=== PATIENT | female | born 1965 | race Native Hawaiian/Other Pacific Islander ===

== ENCOUNTER 2016-11-19 17:25 | Emergency (ER) | payer OTHER ==
[~2016-11-19] VITALS: Ht 182.9 cm; Wt 86.6 kg
[~2016-11-19 17:25] MED LIST: ASA LOW DOSE81 MG PO; CRESTOR20 MG PO; FENT25DI TD; FURO40TA93 PO; LEVO0.1T6 PO; LORA1TAB17 PO; OXYC5TAB53 PO; POTA20TA4 PO; PROM25TA52 PO; SOMA350 MG PO; TIZA4TAB5 PO; ZOLP10TA2 PO
[2016-11-19 18:43] VITALS: BP 141/80; TEMP 98.6
== END 2016-11-19 18:44 | disposition home or self-care (01) ==
LOC: ED 17:25
DX: S63.682A Other sprain of left thumb, initial encounter (principal); W18.39XA Other fall on same level, initial encounter; Y93.89 Activity, other specified; Y92.098 Other place in other non-institutional residence as the place of occurrence of the external cause
CPT/HCPCS: 99281

== ENCOUNTER 2018-05-02 21:33 | Outpatient (CLI) | payer OTHER | END 2018-05-02 21:39 | disposition short-term general hospital (02) | LOC: AMB 21:33 | DX: M54.89 Other dorsalgia (principal); M54.2 Cervicalgia; W10.8XXA Fall (on) (from) other stairs and steps, initial encounter; Y93.89 Activity, other specified; Y92.014 Private driveway to single-family (private) house as the place of occurrence of the external cause | CPT/HCPCS: A0425; A0427 ==

== ENCOUNTER 2018-05-02 21:51 | Emergency (ER) | payer OTHER ==
[~2018-05-02] VITALS: Ht 182.9 cm; Wt 89.8 kg
[2018-05-02 22:41] LABS: POTASSIUM 3.6 mmol/L (3.6-5.2)
[2018-05-02 22:45] LABS: PLATELET COUNT 222 K/uL (152-353)
[2018-05-03 01:12] VITALS: BP 119/69; TEMP 98.1
== END 2018-05-03 01:15 | disposition home or self-care (01) ==
LOC: ED 21:51
PROVIDERS: Family Medicine
DX: S00.83XA Contusion of other part of head, initial encounter (principal); S16.1XXA Strain of muscle, fascia and tendon at neck level, initial encounter; S80.02XA Contusion of left knee, initial encounter; R51 Headache; W10.8XXA Fall (on) (from) other stairs and steps, initial encounter; Y92.89 Other specified places as the place of occurrence of the external cause
CPT/HCPCS: 80053; 80320; 85027; 99283

== ENCOUNTER 2018-06-14 20:17 | Emergency (ER) | payer OTHER ==
[~2018-06-14] VITALS: Ht 182.9 cm; Wt 100.2 kg
[2018-06-14 21:07] LABS: PLATELET COUNT 296 K/uL (152-353)
[2018-06-14 21:17] LABS: POTASSIUM 4.4 mmol/L (3.6-5.2); SODIUM 137 mmol/L (136-145)
[2018-06-14 22:47] VITALS: BP 104/70; TEMP 97.3
== END 2018-06-14 23:00 | disposition home or self-care (01) ==
LOC: ED 20:17
DX: G43.909 Migraine, unspecified, not intractable, without status migrainosus (principal); R07.89 Other chest pain
CPT/HCPCS: 36415; 80053; 81000; 82150; 82550; 82553; 83690; 84484; 85027; 93005; 96360; 96375; 99284; J2175; J2550; J7120

== ENCOUNTER 2018-06-15 03:55 | Outpatient (CLI) | payer OTHER | END 2018-06-15 04:02 | disposition short-term general hospital (02) | LOC: AMB 03:55 | DX: R06.02 Shortness of breath (principal) | CPT/HCPCS: A0425; A0429 ==

== ENCOUNTER 2018-06-15 04:07 | Emergency (ER) | payer OTHER ==
[~2018-06-15] VITALS: Ht 182.9 cm; Wt 100.2 kg
[2018-06-15 04:50] LABS: PLATELET COUNT 288 K/uL (152-353)
[2018-06-15 05:11] LABS: POTASSIUM 4.4 mmol/L (3.6-5.2); SODIUM 141 mmol/L (136-145)
[2018-06-15 06:12] VITALS: BP 115/67; TEMP 97.3
== END 2018-06-15 06:14 | disposition home or self-care (01) ==
LOC: ED 04:07
DX: K29.60 Other gastritis without bleeding (principal); B96.81 Helicobacter pylori [H. pylori] as the cause of diseases classified elsewhere; R07.89 Other chest pain
CPT/HCPCS: 36415; 80053; 80307; 81000; 82550; 82553; 84484; 85027; 86318; 93005; 96374; 96375; 99284; J2060; J3490

== ENCOUNTER 2018-09-15 14:43 | Outpatient (CLI) | payer OTHER | END 2018-09-15 14:52 | disposition home or self-care (01) | LOC: AMB 14:43 | DX: R07.89 Other chest pain (principal) | CPT/HCPCS: A0425; A0427 ==

== ENCOUNTER 2018-09-15 14:52 | Emergency (ER) | payer OTHER ==
[~2018-09-15] VITALS: Ht 182.9 cm; Wt 95.3 kg
[2018-09-15 15:32] LABS: PLATELET COUNT 491 K/uL (152-353)
[2018-09-15 15:44] LABS: POTASSIUM 3.9 mmol/L (3.6-5.2); SODIUM 138 mmol/L (136-145)
[2018-09-15 18:36] VITALS: BP 116/68; TEMP 98.6
== END 2018-09-15 18:41 | disposition home or self-care (01) ==
LOC: ED 14:52
PROVIDERS: Emergency Medicine
DX: R07.89 Other chest pain (principal)
CPT/HCPCS: 36415; 80053; 82550; 82553; 84484; 85027; 93005; 96374; 96375; 99284; J2175; J2550

== ENCOUNTER 2018-10-19 14:03 | Outpatient (CLI) | payer OTHER | END 2018-10-19 14:55 | disposition short-term general hospital (02) | LOC: AMB 14:03 | DX: R06.02 Shortness of breath (principal); R07.9 Chest pain, unspecified; R51 Headache | CPT/HCPCS: A0425; A0427 ==

== ENCOUNTER 2018-11-11 22:28 | Outpatient (CLI) | payer OTHER | END 2018-11-11 22:35 | disposition short-term general hospital (02) | LOC: AMB 22:28 | DX: R11.2 Nausea with vomiting, unspecified (principal) | CPT/HCPCS: A0425; A0429 ==

== ENCOUNTER 2018-11-11 22:40 | Emergency (ER) | payer OTHER ==
[~2018-11-11] VITALS: Ht 182.9 cm; Wt 90.7 kg
[2018-11-11 23:56] LABS: PLATELET COUNT 328 K/uL (152-353)
[2018-11-12 02:00] VITALS: BP 131/75; TEMP 98.2
== END 2018-11-12 02:00 | disposition home or self-care (01) ==
LOC: ED 22:40
PROVIDERS: Internal Medicine
DX: R07.89 Other chest pain (principal); R11.2 Nausea with vomiting, unspecified; I51.7 Cardiomegaly; J44.9 Chronic obstructive pulmonary disease, unspecified
CPT/HCPCS: 36415; 74022; 80053; 80307; 81000; 82550; 85027; 93005; 96372; 99283; J2270; J2550

== ENCOUNTER 2018-12-09 23:02 | Emergency (ER) | payer OTHER ==
[~2018-12-09] VITALS: Ht 182.9 cm; Wt 99.8 kg
[2018-12-10 00:27] VITALS: BP 111/72; TEMP 97.5
== END 2018-12-10 00:28 | disposition home or self-care (01) ==
LOC: ED 23:02
DX: M25.512 Pain in left shoulder (principal); M19.012 Primary osteoarthritis, left shoulder; Z91.81 History of falling
CPT/HCPCS: 99282

== ENCOUNTER 2019-06-04 16:17 | Outpatient (CLI) | payer OTHER | END 2019-06-04 16:23 | disposition short-term general hospital (02) | LOC: AMB 16:17 | DX: R07.89 Other chest pain (principal) | CPT/HCPCS: A0425; A0427 ==

== ENCOUNTER 2019-06-04 16:27 | Observation (INO) | payer OTHER ==
[~2019-06-04] VITALS: Ht 182.9 cm; Wt 95.7 kg
[2019-06-04 16:33] VITALS: BP 127/81
[2019-06-04 17:02] LABS: PLATELET COUNT 262 K/uL (152-353)
[2019-06-04 17:11] LABS: POTASSIUM 4.1 mmol/L (3.6-5.2); SODIUM 141 mmol/L (136-145)
[2019-06-04 20:00] VITALS: BP 107/68; TEMP 97.8
[2019-06-04 23:59] VITALS: BP 93/61; TEMP 97.9
[2019-06-05 00:41] VITALS: BP 107/68; TEMP 97.8; Ht 182.9 cm; Wt 95.7 kg
--- NOTE | 2019-06-05 01:14 | NUR ---
06/04/191900: PT ARRIVED BY WHEELCHAIR TO ROOM 1106 FROM ER. PT ALERT,ORIENTED X3. DENIES CHEST PAIN AT THIS TIME.
--- NOTE | 2019-06-05 01:16 | NUR ---
06/04/19 2030: IV IN RIGHT HAND CAME OUT. IV RESTARTED BY PAINTER AND DECORATOR AND SAFETY ASSOCIATE X3 TIMES.
--- NOTE | 2019-06-05 01:19 | NUR ---
06/04/19 2300: IV IN LEFT FOREARM INFILTRATED. IV TAKEN OUT. IV RESTARTED AFTER 5 ATTEMPTS BY 2 NURSES. GOOD BLOOD RETURN NOTED, FLUSHED EASILY.
[2019-06-05 02:11] LABS: PARTIAL THROMBOPLASTIN TIME 25.2 SECONDS (24.5-33.6)
[2019-06-05 04:00] VITALS: BP 111/62; TEMP 97.9
[2019-06-05 08:00] VITALS: BP 113/66; TEMP 98.7
--- NOTE | 2019-06-05 08:58 | NUR ---
Pt resting in bed with eyes opened and looking at cell phone. On tele and being monitored at nurses station. Bp 113/66, p 72, r 22, O2-97%. Pt c/o pain of 8 in abdomen and chest area and requested pain meds as she was scrolling on her cell phone. She also c/o nausea and requested pain meds at this time. Prn Iv morphone and Phenergan 25 mg, iv was administered. No acute distress noted. Call light is within reach. Will continue to monitor.
[2019-06-05 12:00] VITALS: BP 96/61; TEMP 98.4
--- NOTE | 2019-06-05 13:57 | NUR ---
Pt was discharged to home and refused to be transported to vehicle and left facility ambulating on foot. She was instructed to follow up with pcp in 3-5 day, and voiced understanding. No acute distress noted.
== END 2019-06-05 14:00 | disposition home or self-care (01) ==
LOC: ED 16:27 → MED/SURG 17:50
PROVIDERS: Internal Medicine; ADMIT Emergency Medicine
DX: R07.89 Other chest pain (principal); I25.10 Atherosclerotic heart disease of native coronary artery without angina pectoris; I25.2 Old myocardial infarction; F41.8 Other specified anxiety disorders; Z95.1 Presence of aortocoronary bypass graft; J44.9 Chronic obstructive pulmonary disease, unspecified; I10 Essential (primary) hypertension
CPT/HCPCS: 36415; 80053; 82150; 82550; 83690; 83735; 84484; 85027; 85610; 85730; 93005; 94664; 94760; 96365; 96367; 96374; 96375; 99220; 99284; G0378; J2270; J2550; J3475

== ENCOUNTER 2019-07-19 15:46 | Emergency (ER) | payer OTHER ==
[~2019-07-19] VITALS: Ht 182.9 cm; Wt 97.5 kg
[2019-07-19 17:53] LABS: PLATELET COUNT 276 K/uL (152-353)
[2019-07-19 18:04] LABS: POTASSIUM 4.1 mmol/L (3.6-5.2)
[2019-07-19 19:13] VITALS: BP 129/74; TEMP 98.4
== END 2019-07-19 19:13 | disposition home or self-care (01) ==
LOC: ED 15:46
PROVIDERS: Family Medicine
DX: G35 Multiple sclerosis (principal); R11.0 Nausea; G89.4 Chronic pain syndrome
CPT/HCPCS: 80053; 81000; 85027; 87502; 87651; 96372; 99283; J2550

== ENCOUNTER 2019-10-11 18:28 | Emergency (ER) | payer OTHER ==
[~2019-10-11] VITALS: Ht 182.9 cm; Wt 99.8 kg
[2019-10-11 19:44] LABS: PLATELET COUNT 282 K/uL (152-353)
[2019-10-11 20:06] LABS: POTASSIUM 3.9 mmol/L (3.6-5.2)
[2019-10-11 20:19] LABS: PARTIAL THROMBOPLASTIN TIME 23.4 SECONDS (24.5-33.6)
[2019-10-11 21:20] VITALS: BP 116/75; TEMP 97.9
== END 2019-10-11 21:20 | disposition home or self-care (01) ==
LOC: ED 18:28
PROVIDERS: Family Medicine
DX: R20.0 Anesthesia of skin (principal); G89.29 Other chronic pain; R10.13 Epigastric pain
CPT/HCPCS: 36415; 80053; 81000; 85027; 85610; 85730; 99283

== ENCOUNTER 2020-12-07 16:38 | Emergency (ER) | payer OTHER ==
[~2020-12-07] VITALS: Ht 182.9 cm; Wt 101.2 kg
[2020-12-07 17:07] LABS: PLATELET COUNT 192 K/uL (152-353)
[2020-12-07 17:14] LABS: POTASSIUM 3.2 mmol/L (3.6-5.2)
[2020-12-07 21:00] VITALS: BP 121/80; TEMP 98
== END 2020-12-07 21:00 | disposition short-term general hospital (02) ==
LOC: ED 16:38
PROVIDERS: Family Medicine
DX: T14.91XA Suicide attempt, initial encounter (principal); F32.89 Other specified depressive episodes; T42.6X2A Poisoning by other antiepileptic and sedative-hypnotic drugs, intentional self-harm, initial encounter; T40.422A Poisoning by tramadol, intentional self-harm, initial encounter; T50.912A Poisoning by multiple unspecified drugs, medicaments and biological substances, intentional self-harm, initial encounter; R53.1 Weakness; Z11.52 Encounter for screening for COVID-19; Y92.89 Other specified places as the place of occurrence of the external cause
CPT/HCPCS: 80053; 80307; 80320; 80329; 81000; 85027; 87635; 93005; 96360; 96361; 99284; U0003

== ENCOUNTER 2021-02-08 13:18 | Emergency (ER) | payer OTHER ==
[~2021-02-08] VITALS: Ht 182.9 cm; Wt 89.8 kg
[2021-02-08 14:23] LABS: PLATELET COUNT 230 K/uL (152-353)
[2021-02-08 14:32] LABS: POTASSIUM 3.7 mmol/L (3.6-5.2); SODIUM 138 mmol/L (136-145)
[2021-02-08 16:28] VITALS: BP 116/69; TEMP 98.1
== END 2021-02-08 16:30 | disposition home or self-care (01) ==
LOC: ED 13:18
PROVIDERS: Family Medicine
DX: M48.56XA Collapsed vertebra, not elsewhere classified, lumbar region, initial encounter for fracture (principal); S39.012A Strain of muscle, fascia and tendon of lower back, initial encounter; W18.39XA Other fall on same level, initial encounter; Z91.81 History of falling; Y92.89 Other specified places as the place of occurrence of the external cause
CPT/HCPCS: 80053; 80307; 81000; 84484; 85027; 87077; 87086; 87088; 87186; 93005; 96374; 96375; 99284; J2175; J2405; J2550

== ENCOUNTER 2021-10-19 17:51 | Emergency (ER) | payer OTHER ==
[~2021-10-19] VITALS: Ht 182.9 cm; Wt 89.8 kg
[2021-10-19 17:52] VITALS: BP 124/74; TEMP 98.3
== END 2021-10-19 21:20 | disposition home or self-care (01) ==
LOC: ED 17:51
DX: M25.561 Pain in right knee (principal); Z87.828 Personal history of other (healed) physical injury and trauma
CPT/HCPCS: 96372; 99283; J2550

== ENCOUNTER → 2022-11-02 | Emergency (ER) | payer OTHER ==
[~2022-11-02] VITALS: Ht 182.9 cm; Wt 96.2 kg
[2022-11-02 14:07] VITALS: TEMP 97.3
[2022-11-02 14:41] LABS: PLATELET COUNT 234 K/uL (152-353)
[2022-11-02 14:55] LABS: POTASSIUM 3.8 mmol/L (3.6-5.2)
[2022-11-02 15:00] LABS: PARTIAL THROMBOPLASTIN TIME 23.4 SECONDS (24.5-33.6)
[2022-11-02 16:35] VITALS: BP 138/63
== END | disposition home or self-care (01) ==
LOC: ED 13:52
PROVIDERS: Family Medicine
DX: R07.89 Other chest pain (principal); R77.8 Other specified abnormalities of plasma proteins
CPT/HCPCS: 36415; 80053; 80307; 81002; 82150; 82550; 83690; 83880; 84484; 85027; 85610; 85730; 96365; 96375; 99284; J1644; J2270; J2405

== ENCOUNTER 2022-12-04 19:04 | Emergency (ER) | payer OTHER ==
[~2022-12-04] VITALS: Ht 182.9 cm; Wt 96.2 kg
[2022-12-04 19:20] VITALS: BP 133/64; TEMP 97.3
== END 2022-12-04 21:00 | disposition home or self-care (01) ==
LOC: ED 19:04
DX: N39.0 Urinary tract infection, site not specified (principal); G89.29 Other chronic pain; M54.50 Low back pain, unspecified; F17.210 Nicotine dependence, cigarettes, uncomplicated
CPT/HCPCS: 80307; 81000; 87077; 87086; 87088; 87186; 96372; 99282; J0696

== ENCOUNTER 2022-12-06 13:51 | Emergency (ER) | payer OTHER ==
[~2022-12-06] VITALS: Ht 182.9 cm; Wt 96.2 kg
[2022-12-06 14:00] VITALS: TEMP 98.6
[2022-12-06 15:13] VITALS: BP 98/62
== END 2022-12-06 15:13 | disposition home or self-care (01) ==
LOC: ED 13:51
DX: G89.29 Other chronic pain (principal); M54.50 Low back pain, unspecified; N39.0 Urinary tract infection, site not specified
CPT/HCPCS: 80307; 81002; 99283

== ENCOUNTER 2023-01-12 12:51 | Emergency (ER) | payer OTHER ==
[~2023-01-12] VITALS: Ht 182.9 cm; Wt 99.8 kg
[2023-01-12 12:52] VITALS: TEMP 97.6
[2023-01-12 15:10] VITALS: BP 155/93
== END 2023-01-12 15:30 | disposition home or self-care (01) ==
LOC: ED 12:51
PROC: 2W3FX1Z Immobilization of Left Hand using Splint (ICD-10-PCS; principal; 2023-01-12)
DX: S62.367A Nondisplaced fracture of neck of fifth metacarpal bone, left hand, initial encounter for closed fracture (principal); X58.XXXA Exposure to other specified factors, initial encounter; F17.210 Nicotine dependence, cigarettes, uncomplicated
CPT/HCPCS: 99283